=== PATIENT | female | born 1940 | race Caucasian/White ===

== ENCOUNTER 2021-02-11 19:14 | Emergency (ER) | payer MEDICARE, SELFPAY ==
--- NOTE | ~2021-02-11 | CT_ITS ---
EXAMINATION: CT facial bones wo con EXAM DATE: 02/11/2021 20:33 INDICATION: Facial injury . TECHNIQUE: Spiral CT of the facial bones was acquired in the axial plane without contrast. Coronal reformatted images were also reviewed. The dose-length product (DLP) for this examination was 292.97 mGy-cm. The exposure was tailored according to patient size, and iterative reconstruction (ASIR) wa s used as additional dose reduction technique. There is no prior study for comparison. FINDINGS: Acute right inferior orbital wall fracture without displacement. Acute right maxillary sinu s anterior wall fracture with mild displacement. Acute essentially minimally displaced right maxillar y sinus posterior wall fracture. There is air hematocrit level in the right maxillary sinus. The orbi ts, globes and extraocular muscles are unremarkable. The visualized sinuses and mastoid air cells a re well aerated. IMPRESSION: Acute right inferior orbital wall, anterior and posterior maxillary sinus wall fractures. Reviewed, dictated and finalized at location A.
--- NOTE | ~2021-02-11 | XR_ITS ---
EXAMINATION: XR elbow RT min 3V EXAM DATE: 02/11/2021 20:58 INDICATION: Initial encounter following injury, with pain of the right elbow. TECHNIQUE: Right elbow frontal, lateral with flexion, and oblique projections obtained and reviewed. There is no prior study for comparison. FINDINGS: Right elbow anterior humeral line intact. There are no acute fractures or dislocations key ntified. There is no subcutaneous gas. The soft tissue is unremarkable. There are no radiopaque f oreign bodies. IMPRESSION: 1. XR elbow RT min 3V exam without acute osseous findings. Reviewed, dictated and finalized at location A.
--- NOTE | ~2021-02-11 | XR_ITS ---
EXAMINATION: XR wrist RT min 3V EXAM DATE: 02/11/2021 20:58 INDICATION: Initial encounter following injury, with pain of the right wrist. TECHNIQUE: Frontal and lateral projections right wrist. There is no prior study for comparison. FINDINGS: Acute closed posttraumatic comminuted fractures of the right radial distal metaphysis into the radiocarpal joint and distal radial ulnar joint. There is some posterior displacement and about 45 degrees of posterior angulation. There is overlying soft tissue swelling. Carpal bones are unremar kable. IMPRESSION: Acute comminuted right radial distal metaphyseal intra-articular fractures. Posterior di splacement and angulation. Reviewed, dictated and finalized at location A. IMPRESSION: Acute comminuted right radial distal metaphyseal intra-articular f ractures. Posterior displacement and angulation.
--- NOTE | ~2021-02-11 | CT_ITS ---
EXAMINATION: CT brain wo con EXAM DATE: 02/11/2021 20:33 INDICATION: Head injury . TECHNIQUE: Spiral CT of the head was performed without contrast. Axial, coronal and sagittal images were reviewed. The dose-length product (DLP) for this examination was 292.97 mGy-cm. The exposure w as tailored according to patient size, and iterative reconstruction (ASIR) was used as additional dos e reduction technique. There is no prior study for comparison. FINDINGS: There is no acute intraparenchymal hemorrhage. No evidence of intraparenchymal brain mass lesion. No evidence of acute infarction. Please note that initial head CT has limited sensitivity f or small or acute infarctions. There is periventricular and subcortical hypodensity, nonspecific but probably related to small vessel ischemic disease. There is prominence of the sulci and ventricles related to cerebral atrophy. There is intracranial carotid arteriosclerosis. There are no extra-ax ial collections. There is no mass effect or midline shift. Right inferior orbital, anterior and pos terior maxillary sinus wall fractures, please see CT facial bone report. Bilateral cataract surgery. Soft tissue is unremarkable. The visualized sinuses and mastoid air cells are well aerated. IMPRESSION: 1. No acute intracranial findings. 2. Chronic age related findings. 3. Right inferior orbital wall, maxillary sinus fractures. Reviewed, dictated and finalized at location A.
--- NOTE | ~2021-02-11 | CT_ITS ---
EXAMINATION: CT cervical spine wo con EXAM DATE: 02/11/2021 20:33 INDICATION: Neck pain status post fall TECHNIQUE: Spiral CT of the cervical spine was performed without contrast. Axial images were reviewe d. Coronal and sagittal reformatted images cervical spine were also reviewed. The dose-length produc t (DLP) for this examination was 292.97 mGy-cm. The exposure was tailored according to patient size (auto mA exposure control), and iterative reconstruction (ASIR) was used as additional dose reduction technique. There is no prior study for comparison. FINDINGS: Upper lobe granuloma. There is no evidence of acute cervical fracture. The odontoid proces s is intact. Pre-dens space is normal. Prevertebral soft tissue is normal. There are no soft tissu e abnormalities identified. There is no disc space widening or traumatic vertebral body subluxation suspected. There is advanced cervical spondylosis. A detailed level by level evaluation of spondylo sis can be added as addendum if requested. IMPRESSION: 1. No acute cervical fracture. 2. Advanced cervical spondylosis. Reviewed, dictated and finalized at location A.
--- NOTE | ~2021-02-11 | XR_ITS ---
EXAMINATION: XR shoulder RT min 2V EXAM DATE: 02/11/2021 20:58 INDICATION: Initial encounter following injury, with pain of the right shoulder. TECHNIQUE: The following right shoulder projections obtained: frontal projection with internal rotati on, frontal projection with external rotation, Grashey, and scapular Y view (4+ views). There is no prior study for comparison. FINDINGS: Right upper lobe granuloma. No evidence of right shoulder rotator cuff calcific tendinosis . There is moderate glenohumeral and acromioclavicular joint primary osteoarthritis. There are no ac [place] fractures or dislocations identified. There is no subcutaneous gas. The soft tissue is unremark able. There are no radiopaque foreign bodies. IMPRESSION: 1. XR shoulder RT min 2V exam without acute osseous findings. 2. Moderate osteoarthritis. Reviewed, dictated and finalized at location A.
[2021-02-11 19:14] VITALS: BP 131/60; PULSE 87; RESP 14; TEMP 36.6; O2SAT 100
--- NOTE | 2021-02-11 19:53 | ED.GENADULT ---
HPI - General Adult General Chief complaint: Fall Stated complaint: ground level fall, r wrist pain Time Seen by Provider: 02/11/21 19:23 History of Present Illness HPI narrative: Patient 80-year-old female presents the emergency department with chief complaint of fall patient reports she was at a local dispensary and tripped and fell patient fell on an outstretched right upper extremity reports he has a deformity of her right wrist reports pain in the elbow shoulder reports she has pain in her face patient denies loss of consciousness but reports that she also has neck pain with this as well. Patient states that she has no pain in the hips reports is able to walk denies nausea vomiting reports she feels a little tired afterwards. Related Data Allergies Allergy/AdvReac Type Severity Reaction Status Date / Time cephalexin [From Keflex] Allergy Anaphylactic Verified 02/11/21 20:06 Shock Quinolones Allergy Hives Verified 02/11/21 20:08 codeine AdvReac Jittery Verified 02/11/21 20:06 Review of Systems Review of Systems: Narrative: A 10 system review of systems was completed on the patient and is negative except for what is stated in the HPI. Nursing and ancillary documentation was reviewed. Exam Narrative: Exam Narrative: GENERAL: Well-appearing, well-nourished, and in no acute distress. HEAD: Normocephalic, small abrasion present on the forehead. EYES: PERRLA and EOMI. ENT: Nares clear, no rhinorrhea or epistaxis. Mucous membranes moist. NECK: Supple. CHEST: Clear to auscultation. No respiratory distress. HEART: Regular rate and rhythm. No murmur heard. Normal peripheral pulses. ABDOMEN: Soft, nontender, nondistended, normal active bowel sounds. EXTREMITIES: Normal range of motion. No edema. There is a deformity of the right wrist. There is tenderness in the right elbow and right shoulder SKIN: Warm, dry, no rash. NEURO: No focal deficits. Alert and oriented x3. PSYCH: Normal mood and affect. Course Vital Signs Vital signs: Vital Signs Temperature 36.6 C 02/11/21 19:14 Pulse Rate 87 02/11/21 19:14 Respiratory Rate 14 02/11/21 19:14 Blood Pressure 131/60 02/11/21 19:14 Pulse Oximetry 100 02/11/21 19:14 Temperature 36.6 C 02/11/21 19:14 Pulse Rate 87 02/11/21 19:14 Respiratory Rate 14 02/11/21 19:14 Blood Pressure 131/60 02/11/21 19:14 Pulse Oximetry 100 02/11/21 19:14 Procedures Orthopedic Fracture Reduction Fracture #1: Fracture Reduction date: 02/11/21 Fracture Reduction time: 22:03 Time Out Performed: Yes Side: right Fracture Reduction Location: radius Analgesia: none Pre-Procedure Neuro Vascular Exam: normal Technique: direct manipulation Post Reduction X-rays Demonstrate: acceptable reduction Post-reduction neuro exam: intact Post-reduction vascular exam: intact Splint Applied: Yes Patient Tolerated Procedure: well Orthopedic Splinting/Casting Injury #1: Splinting/Casting Date: 02/11/21 Splinting/Casting Time: 22:03 Side: right Upper Extremity Injury Location: forearm Upper Extremity Immobilizer: sugar tong splint Splint: customized in ED OCL: sugar tong Pre-Procedure Neuro Vascular Exam: normal Post-Procedure Neuro Vascular Exam: normal Other Orthopedic Equipment: other (sling) Medical Decision Making Vital Signs Vital Signs: Vital Signs Temperature 36.6 C 02/11/21 19:14 Pulse Rate 87 02/11/21 19:14 Respiratory Rate 14 02/11/21 19:14 Blood Pressure 131/60 02/11/21 19:14 Pulse Oximetry 100 02/11/21 19:14 Temperature 36.6 C 02/11/21 19:14 Pulse Rate 87 02/11/21 19:14 Respiratory Rate 14 02/11/21 19:14 Blood Pressure 131/60 02/11/21 19:14 Pulse Oximetry 100 02/11/21 19:14 Discharge Plan Discharge Clinical Impression: Fracture of wrist Qualifiers: Encounter type: initia
[2021-02-11] MEDS: MORPHINE SULFATE (*CRX) 4 MG/ML INJ IV PUSH (20:02)
[2021-02-11] MEDS: ONDANSETRON INJ 4 MG/2 ML VIAL IV PUSH (21:49)
[2021-02-11] MEDS: HYDROmorphone HCL INJ (*CRX) 1 MG/ML SYR IV PUSH ×2 (21:49→23:01)
--- NOTE | 2021-02-11 23:13 | PC.NURSE ---
pt refuses straight cath
[2021-02-11 23:34] VITALS: BP 128/79; PULSE 80; RESP 18; O2SAT 100
== END 2021-02-11 23:40 | disposition home or self-care (01) ==
PROVIDERS: Emergency Provider Emergency Medicine
DX: S52.571A Other intraarticular fracture of lower end of right radius, initial encounter for closed fracture (principal); S02.31XA Fracture of orbital floor, right side, initial encounter for closed fracture; S02.40CA Maxillary fracture, right side, initial encounter for closed fracture; M19.011 Primary osteoarthritis, right shoulder; W01.0XXA Fall on same level from slipping, tripping and stumbling without subsequent striking against object, initial encounter
CPT/HCPCS: 25605; 70450; 70486; 72125; 73030; 73080; 73110; 96374; 96375; 96376; 99285; J1170; J2270; J2405